=== PATIENT | female | born 1960 | race African-American/Black ===

== ENCOUNTER 2016-04-04 17:33 | Emergency (ER) | payer OTHER ==
[~2016-04-04] VITALS: Ht 167.6 cm; Wt 113.4 kg
[~2016-04-04 17:33] MED LIST: ALEVE220 M2 PO; CYCLOBENZAPRINE10 MG ORAL; IBUPROFEN600 MG ORAL; NITROFURANTOIN100 M2 ORAL; NORCO 5-325 TA1 EACH ORAL; NORCO1 E1 ORAL
[2016-04-04 17:43] VITALS: BP 133/93
[2016-04-04] MEDS ORDERED: CLINDAMYCIN HC300 MG ORAL (18:08)
[2016-04-04] MEDS ORDERED: NORCO 5-325 TA1 EAC1 ORAL (18:08)
--- NOTE | 2016-04-04 18:14 | Emergency Room Report ---
History of Present Illness General Chief Complaint: Toothache Source: Patient Present Illness HPI The patient is a 55 old female presenting with tooth pain which began 2 days prior. The pain is described as a 9/10 dull ache and radiates to the right side of the neck. The patient states that she called her dentist who advised her to come to the emergency department for antibiotics. The patient denies fever, chills, headache, N, V, dizziness Allergies: Coded Allergies: PENICILLINS (Verified Allergy, Severe, 08/09/15) Patient History Past Medical History: see triage record Pertinent Family History: none Reviewed Nursing Documentation: PMH: Agreed, PSxH: Agreed Nursing Documentation-PMH Past Medical History: No Stated History Hx Gastrointestinal Problems: Yes - acid reflux Review of Systems All Other Systems: negative except mentioned in HPI Physical Exam Vital Signs Date Time Temp Pulse Resp B/P Pulse Ox O2 Delivery O2 Flow Rate FiO2 04/04/16 17:43 97.9 73 14 133/93 100 Room Air Sp02 EP Interpretation: reviewed, normal General Appearance: no apparent distress, alert, GCS 15, non-toxic Eyes: bilateral eye PERRL, bilateral eye normal inspection ENT: hearing grossly normal, no angioedema, normal voice, uvula midline, moist mucus membranes, other - R lower molar: obvious caries and decay. Erythema posterior to tooth. No edema. No flucatuance Neck: full range of motion, supple/symm/no masses Neurologic: alert, oriented x3, responsive, motor strength/tone normal, sensory intact, speech normal Psychiatric: judgement/insight normal, memory normal, mood/affect normal, no suicidal/homicidal ideation Skin: normal color, no rash, warm/dry, well hydrated Lymphatic: no adenopathy Medical Decision Making PA Attestation Dr. Bragg is my supervising physician. Patient management was discussed with my supervising physician Diagnostic Impression: Primary Impression: Dental infection Additional Impression: Dental caries ER Course The pt is a 55 yo F presenting for R sided dental pain. Diagnoses considered but not limited to: Dental caries, dental abscess, toothache, gingivitis PE: Vitals WNL. NAD. R lower molar: obvious caries and decay. Erythema posterior to tooth. No edema. No fluctuance. CURES is reviewed. No suspicious activity The patient states that she is allergic to penicillin. The patient be discharged home with a prescription for clindamycin and [place] for pain. The patient will see dentist as soon as possible for further treatment. ER precautions given Last Vital Signs Date Time Temp Pulse Resp B/P Pulse Ox O2 Delivery O2 Flow Rate FiO2 04/04/16 17:43 97.9 74 14 133/93 100 Room Air Status: improved Disposition: HOME, SELF-CARE Condition: Improved Scripts Clindamycin Hcl (CLINDAMYCIN HCL) 300 Mg Capsule 300 MG ORAL FOUR TIMES A DAY, #28 CAP Prov: GIOVANI MAYA 04/04/16 Hydrocodone Bit/Acetaminophen 5-325* (NORCO 5-325 TABLET*) 1 Each Tablet 1 TAB ORAL Q6HR Y for For Pain, #15 TAB Prov: GIOVANI MAYA 04/04/16 Patient Instructions: Dental Pain, Dental Caries Additional Instructions: I discussed my findings with the patient. All questions and concerns have been answered. Treatment and medication compliance have been addressed. I advised the patient that they need to follow up with PMD in 3-5 days. Return to ED if symptoms worsen, new symptoms arise, or if needed for any reason. Patient verbalized understanding of discharge instructions. The patient will followup with dentist as soon as possible as was discussed GIOVANI MAYA Apr 04, 2016 18:14
== END 2016-04-04 18:52 | disposition home or self-care (01) ==
LOC: EMR 18:40
DX: K04.7 Periapical abscess without sinus (principal); K02.9 Dental caries, unspecified; Z88.0 Allergy status to penicillin
CPT/HCPCS: 99282

== ENCOUNTER 2016-04-06 17:54 | Emergency (ER) | payer OTHER ==
[~2016-04-06] VITALS: Ht 167.6 cm; Wt 113.4 kg
[~2016-04-06 17:54] MED LIST changes: +CLINDAMYCIN HC300 MG ORAL; +NORCO 5-325 TA1 EAC1 ORAL
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
[2016-04-06] MEDS ORDERED: Tylenol #3 tab (300mg/30mg) ORAL ONE (18:45)
[2016-04-06] MEDS ORDERED: Ketorolac 60mg Inj IM ONE (18:45)
[2016-04-06] MEDS ORDERED: Methocarbamol 750mg tab ORAL ONE (18:45)
[2016-04-06 19:03] VITALS: BP 151/72
[2016-04-06] MEDS ORDERED: IBUPROFEN600 MG ORAL (21:48)
[2016-04-06] MEDS ORDERED: ROBAXIN-750750 MG PO (21:48)
[2016-04-06 22:15] VITALS: BP 138/78
--- NOTE | 2016-04-09 15:54 | Diagnostic Imaging Report ---
Indications: Neck pain Technique: 5 views of the cervical spine. Findings: Comparison: None. Multiple images graded by overlying hair artifact. Lordotic curvature is straightened.Vertebral alignment is intact. No fracture, lytic destruction, facet subluxation or dislocation, prevertebral soft tissue swelling, or other acute changes are identified. The C4-5 through C6-7 disc spaces are narrowed with marginal osteophyte formation, uncovertebral joint spurring.. This results in apparent mild bony narrowing of the spinal canal. At C5-6 on lateral view, mild narrowing of the bilateral neural foramina at C4-5 and C5-6 oblique views. IMPRESSION: Straightening of cervical lordosis. This may be secondary to degenerative changes, positioning and/or muscular spasm. Otherwise no evidence of acute cervical abnormality Multilevel degenerative disc disease. Neural impingement not excludable. Consider MRI for more detailed evaluation, as clinically indicated..
== END 2016-04-06 22:15 | disposition home or self-care (01) ==
LOC: EMR 20:03
DX: M54.2 Cervicalgia (principal); V43.52XA Car driver injured in collision with other type car in traffic accident, initial encounter; Y92.414 Local residential or business street as the place of occurrence of the external cause; Z88.0 Allergy status to penicillin
CPT/HCPCS: 72052; 96372; 99283

== ENCOUNTER 2016-04-12 13:53 | Emergency (ER) | payer OTHER ==
[~2016-04-12] VITALS: Ht 167.6 cm; Wt 113.4 kg
[~2016-04-12 13:53] MED LIST changes: +ROBAXIN-750750 MG PO
[2016-04-12] MEDS ORDERED: CLINDAMYCIN HC150 MG ORAL (14:05)
[2016-04-12 14:30] VITALS: BP 129/84
[2016-04-12 15:30] VITALS: BP 124/79
[2016-04-12] MEDS ORDERED: Norco 5mg/325mg tab ORAL ONE (15:45)
[2016-04-12 16:12] LABS: ALANINE AMINOTRANSFERASE 17 U/L (3-33); ALBUMIN/GLOBULIN RATIO 1.1 (1.0-2.7); ANION GAP 17 (5-15); ASPARTATE AMINO TRANSFERASE 20 U/L (5-40); CALCIUM 9.6 mg/dL (8.6-10.2); CARBON DIOXIDE 20 mEQ/L (20-30); CHLORIDE 103 mEQ/L (98-107); CREATININE 1.1 mg/dL (0.5-0.9); GLOMERULAR FILTRATION RATE > 60 mL/min (>60); HEMOLYSIS 53; LIPASE 24 U/L (< 60); POTASSIUM 4.8 mEQ/L (3.4-4.9); SODIUM 140 mEQ/L (135-145); TOTAL PROTEIN 7.4 g/dL (6.6-8.7)
[2016-04-12 16:13] LABS: BASOPHILS % (AUTO) 1.7 % (0.0-2.0); EOSINOPHILS % (AUTO) 1.7 % (0.0-3.0); LYMPHOCYTES % (AUTO) 32.3 % (20.0-45.0); MEAN CORPUSCULAR HEMOGLOBIN 29.7 PG (27.0-31.0); MEAN CORPUSCULAR HGB CONC 32.3 G/DL (32.0-36.0); MEAN CORPUSCULAR VOLUME 92 FL (80-99); MEAN PLATELET VOLUME 6.1 FL (6.5-10.1); MONOCYTES % (AUTO) 8.9 % (1.0-10.0); NEUTROPHILS % (AUTO) 55.5 % (45.0-75.0); PLATELET COUNT 419 K/UL (150-450); RED BLOOD COUNT 4.85 M/UL (4.20-5.40); RED CELL DISTRIBUTION WIDTH 12.9 % (11.6-14.8); WHITE BLOOD COUNT 5.7 K/UL (4.8-10.8)
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
[2016-04-12] MEDS ORDERED: TRAMADOL HCL50 MG ORAL (17:14)
[2016-04-12] MEDS ORDERED: IBUPROFEN600 MG ORAL (17:14)
[2016-04-12 17:23] VITALS: BP 116/78
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
== END 2016-04-12 17:29 | disposition home or self-care (01) ==
LOC: EMR 14:25
DX: S33.5XXA Sprain of ligaments of lumbar spine, initial encounter (principal); V43.52XA Car driver injured in collision with other type car in traffic accident, initial encounter; Y92.414 Local residential or business street as the place of occurrence of the external cause; K57.30 Diverticulosis of large intestine without perforation or abscess without bleeding; K21.9 Gastro-esophageal reflux disease without esophagitis; Z88.0 Allergy status to penicillin; Z90.710 Acquired absence of both cervix and uterus; M47.816 Spondylosis without myelopathy or radiculopathy, lumbar region; J98.11 Atelectasis
CPT/HCPCS: 36415; 74177; 80053; 83690; 85025; 96360; 99284; Q9967

== ENCOUNTER 2016-11-15 21:06 | Emergency (ER) | payer OTHER ==
[~2016-11-15] VITALS: Ht 167.6 cm; Wt 117.9 kg
[~2016-11-15 21:06] MED LIST changes: +CLINDAMYCIN HC150 MG ORAL; +TRAMADOL HCL50 MG ORAL
[2016-11-15] MEDS ORDERED: NKM (21:43)
[2016-11-15] MEDS ORDERED: Norco 5mg/325mg tab ORAL ONE (22:15)
[2016-11-15] MEDS ORDERED: Aspirin Baby 81mg ORAL ONE (22:15)
[2016-11-15 22:30] VITALS: BP 126/89
[2016-11-15 22:58] LABS: TROPONIN I < 0.30 ng/mL (<=0.30)
[2016-11-15 23:01] LABS: ALANINE AMINOTRANSFERASE 27 U/L (3-33); ALBUMIN/GLOBULIN RATIO 1.2 (1.0-2.7); ANION GAP 13 (5-15); ASPARTATE AMINO TRANSFERASE 43 U/L (5-40); CALCIUM 9.8 mg/dL (8.6-10.2); CARBON DIOXIDE 23 mEQ/L (20-30); CHLORIDE 103 mEQ/L (98-107); GLOMERULAR FILTRATION RATE > 60 mL/min (>60); HEMOLYSIS 224; POTASSIUM 4.8 mEQ/L (3.4-4.9); SODIUM 139 mEQ/L (135-145); TOTAL PROTEIN 7.8 g/dL (6.6-8.7)
[2016-11-15 23:11] LABS: CKMB < 1.5 ng/mL (< 3.8)
[2016-11-15 23:29] VITALS: BP 131/80
[2016-11-15] MEDS ORDERED: IBUPROFEN600 MG ORAL (23:46)
[2016-11-15] MEDS ORDERED: TRAMADOL HCL50 MG ORAL (23:46)
[2016-11-15] MEDS ORDERED: CYCLOBENZAPRINE10 MG ORAL (23:46)
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
[2016-11-15 23:51] VITALS: BP 131/80
--- NOTE | 2016-11-16 08:45 | Diagnostic Imaging Report ---
Indication: Chest pain Comparison: None A single view chest radiograph was obtained. Findings: Lungs are clear. Cardiomegaly is present. The bones are unremarkable. Impression: No acute disease
--- NOTE | 2016-11-19 15:37 | Cardiology Report ---
APPROVED REPORT EKG Measurement Heart [id number] Normal sinus rhythm Normal ECG
== END 2016-11-15 23:51 | disposition home or self-care (01) ==
LOC: EMR 21:37
DX: R07.9 Chest pain, unspecified (principal); M54.5 Low back pain; Z88.0 Allergy status to penicillin; K21.9 Gastro-esophageal reflux disease without esophagitis; G89.29 Other chronic pain; I51.7 Cardiomegaly
CPT/HCPCS: 36415; 71010; 80053; 82550; 82553; 84484; 93005; 99284

== ENCOUNTER 2017-01-16 12:23 | Emergency (ER) | payer OTHER ==
[~2017-01-16] VITALS: Ht 167.6 cm; Wt 116.6 kg
[~2017-01-16 12:23] MED LIST changes: +NKM
--- NOTE | 2017-01-16 12:49 | Emergency Room Report ---
History of Present Illness General Chief Complaint: Nausea, Vomiting, and Diarrhea Source: Patient, Medical Record Present Illness HPI Patient presents with complaints of vomiting and diarrhea ongoing for the past 7 days patient has history of Neck and back problems She had recent MRI showing disc problems Patient has appointments with her primary physician pain management and endocrine specialist with thyroid masses that were seen Patient however has been unable to take much of her pain medication Given the vomiting and presents for increased pain any both shoulders upper back and lower back area ,, Allergies: Coded Allergies: PENICILLINS (Verified Allergy, Severe, 08/09/15) Patient History Past Medical History: see triage record Pertinent Family History: none Last Menstrual Period: menopause Reviewed Nursing Documentation: PMH: Agreed, PSxH: Agreed Nursing Documentation-PMH Past Medical History: No History, Except For Hx Gastrointestinal Problems: Yes - acid reflux Review of Systems All Other Systems: negative except mentioned in HPI Physical Exam Vital Signs Date Time Temp Pulse Resp B/P (MAP) Pulse Ox O2 Delivery O2 Flow Rate FiO2 01/16/17 12:38 98.2 87 16 101/70 96 Room Air Sp02 EP Interpretation: reviewed, normal General Appearance: well appearing, no apparent distress Head: normocephalic, atraumatic Eyes: bilateral eye PERRL, bilateral eye EOMI ENT: hearing grossly normal, normal pharynx, TMs + canals normal, uvula midline Neck: full range of motion, supple, no meningismus, no bony tend Respiratory: lungs clear, normal breath sounds, no rhonchi, no respiratory distress, no retraction, no accessory muscle use Cardiovascular #1: normal peripheral pulses, regular rate, rhythm, no edema, no gallop, no JVD, no murmur Gastrointestinal: normal bowel sounds, non tender, soft, no mass, no organomegaly, non-distended, no guarding, no hernia, no pulsatile mass, no rebound Genitourinary: no CVA tenderness Musculoskeletal: normal inspection Neurologic: oriented x3, responsive, handle maker III-XII nml as tested, motor strength/ tone normal, sensory intact Psychiatric: mood/affect normal Skin: normal color, no rash, warm/dry, palpation normal Lymphatic: normal inspection, no adenopathy Medical Decision Making Diagnostic Impression: Primary Impression: Nausea, vomiting, and diarrhea ER Course Patient was asked with complaints in line with gastrointestinal pathology Patient feels that her pain has flared up as she is unable to take oral medication She was provided with IM medication has been significantly better No obvious acute pathology is appreciated on exam And patient is stable for close outpatient followup Last Vital Signs Date Time Temp Pulse Resp B/P (MAP) Pulse Ox O2 Delivery O2 Flow Rate FiO2 01/16/17 12:38 98.2 87 16 101/70 96 Room Air Status: improved Disposition: HOME, SELF-CARE Condition: Improved Scripts Cyclobenzaprine Hcl* (FLEXERIL*) 10 Mg Tablet 10 MG ORAL BIDAC, #20 TAB Prov: VICKY POSEY D.O. 01/16/17 Methocarbamol* (ROBAXIN-750*) 750 Mg Tablet 750 MG PO TID, #21 TAB 0 Refills Prov: VICKY POSEY D.O. 01/16/17 Ondansetron Odt* (ZOFRAN ODT*) 4 Mg Tab.rapdis 4 MG ORAL Q6H Y for Nausea & Vomiting, #20 TAB 0 Refills Prov: VICKY POSEY D.O. 01/16/17 Additional Instructions: Patient is provided with the discharge instructions notified to follow up with primary doctor in the next 2-3 days otherwise return to the er with any worsening symptoms. Please note that this report is being documented using [employer] technology. This can lead to erroneous entry secondary to incorrect interpretation by the dictating instrument. VICKY POSEY D.O. Jan 16, 2017 12:49
[2017-01-16 12:50] VITALS: BP 124/68
[2017-01-16] MEDS ORDERED: Morphine Sulfate 2mg/ml Inj IM ONE (13:00)
[2017-01-16] MEDS ORDERED: ZOFRAN ODT4 MG ORAL (13:03)
[2017-01-16] MEDS ORDERED: ROBAXIN-750750 MG PO (13:03)
[2017-01-16] MEDS ORDERED: Morphine Sulfate 10mg/ml Inj ONE (13:13)
[2017-01-16] MEDS ORDERED: CYCLOBENZAPRINE10 MG ORAL (13:46)
[2017-01-16 13:50] VITALS: BP 124/80
== END 2017-01-16 13:55 | disposition home or self-care (01) ==
LOC: EMR 13:00
DX: R11.2 Nausea with vomiting, unspecified (principal); R19.7 Diarrhea, unspecified; Z88.0 Allergy status to penicillin; Z78.0 Asymptomatic menopausal state; K21.9 Gastro-esophageal reflux disease without esophagitis
CPT/HCPCS: 96372; 99284; J2270